=== PATIENT | female | born 1955 | race Caucasian/White ===

== ENCOUNTER 2016-06-05 14:16 | Emergency (ER) | payer BC ==
--- NOTE | ~2016-06-05 | EKG ---
PATIENT: ADRIANO MAGANA UNIT #: [id number] Ventricular Rate: 57 BPM Atrial Rate: 57 BPM P-R Interval: 188 ms QRS Duration: 90 ms Q-T Interval: 686 ms QTC Calculation(Bezet): 667 ms P [place]: 37 degrees Calculated R [place]: 33 degrees Calculated T [place]: 49 degrees Diagnosis Line: Sinus bradycardia Diagnosis Line: Low voltage QRS Diagnosis Line: Nonspecific ST abnormality Diagnosis Line: Prolonged QT Diagnosis Line: Abnormal ECG Diagnosis Line: No previous ECGs available Diagnosis Line: Confirmed by HARRIET HO MD ([id number]) on Diagnosis Line: 06/06/2016 8:17:08 AM INTERPRETING MD: GEORGIA TAFOYA
--- NOTE | ~2016-06-05 | CT57 ---
[facility] A Service of [facility] RADIOLOGY TEXT RESULTS PATIENT: ADRIANO MAGANA LOCATION: [facility] : 55 UNIT #: [id number] AGE: [address]: Sergio Witt MD SEX: F ORDER DR: [id number] [facility] [address] [place], [place] [address] [id number] E MR#: [id number] Acc #: [id number] NAME: ADRIANO MAGANA : 1955 SEX: F STUDY DATE/TIME: 06/05/2016 15:42 UNIT: [facility] ROOM: STUDY DESCRIPTION: CT Chest Wo Cont Attending Physician: Sergio Witt M.D. Ordering Physician: Svetlana Vu M.D. Primary Care Physician: Anand Field, [facility] MEDICAL IMAGING REPORT This report is preliminary unless electronic signature is present EXAM CT of the chest without contrast, 06/05/2016 INDICATION 61-year-old female with history of hypertension, weakness since last week, history of aortic aneurysm. TECHNIQUE CT of the chest was performed without contrast. Coronal and sagittal reformatted images were obtained. Compared with 06/30/2013. This CT exam was performed with one or more of the following radiation dose reduction techniques: automatic exposure control, adjustment of mA and/or kV according to patient size, and iterative reconstruction. FINDINGS Redemonstrated is aneurysmal dilatation of the ascending aorta which measures about 4.5 cm in greatest dimension. This is stable. The descending thoracic aorta is within normal limits. There is trace pericardial fluid or thickening. This is stable. There is no pleural effusion. There is no lymphadenopathy. Calcified hilar lymph nodes on the right. Stable tiny right middle lobe nodule which should be benign. Linear scarring or atelectasis in the bases of both lower lobes. Stable chronic tree-in-bud nodularity in the superior segment of the left lower lobe. No new nodule or airspace consolidation. Limited imaging of the upper abdomen demonstrates cholecystectomy. Stable hyperdense lesion in the left kidney likely reflecting a hyperdense cyst. Stable dilated common bile duct. Degenerative changes of the thoracic spine. IMPRESSION [facility] A Service of [facility] RADIOLOGY TEXT RESULTS PATIENT: ADRIANO MAGANA [facility] #: [id number] : 55 UNIT #: [id number] AGE: [address]: Sergio Witt MD SEX: F ORDER DR: There is no acute abnormality. The study is unchanged compared with 2014. Stable ascending aortic aneurysm. Dictated by... Barrie Ryan M.D. THIS IS AN ELECTRONICALLY VERIFIED REPORT Barrie Ryan M.D. at 06/06/2016 4:43 PM ADILENE/ramona TD: 06/05/2016 23:26 JOB #: [id number] MEDICAL IMAGING REPORT COPY
[2016-06-05 14:03] LABS: URINE SOURCE CLEAN CATCH
[2016-06-05 14:20] LABS: URINE APPEARANCE CLEAR; URINE BILIRUBIN NEG (NEG); URINE BLOOD NEG (NEG); URINE COLOR YELLOW; URINE GLUCOSE NEG (NEG); URINE KETONE NEG (NEG); URINE LEUKOCYTE ESTERASE TRACE (NEG); URINE NITRATE NEG (NEG); URINE PROTEIN NEG (NEG); URINE SPECIFIC GRAVITY 1.009 (1.003-1.035); URINE UROBILINOGEN 0.2 MG/DL (NEG)
[2016-06-05 14:24] LABS: U HYALINE CASTS AUWI 0-2 /[LPF]; URBCS1 AUWI 0-2 /[HPF] (0-2); URINE BACTERIA AUWI NEG (NEGATIVE); URINE SQUAMOUS EPITHELIAL CELL NONE SEEN /[HPF]; UWBCS1 AUWI 0-2 (0-5)
[2016-06-05 14:26] LABS: CULTURE INDICATED? NO
[2016-06-05 15:08] LABS: BASOPHIL# 0.1 X10e3 (0-0.3); BASOPHIL% 0.8 % (0-2.5); EOSINOPHIL# 0.1 X10e3 (0-0.7); EOSINOPHIL% 0.8 % (0.0-7.0); HEMATOCRIT 40.1 % (35.0-45.0); HEMOGLOBIN 13.7 gm/dL (12.0-16.0); LYMPHOCYTE# 2.1 X10e3 (1.0-3.5); MEAN CORPUSCULAR HEMOGLOBIN 30.3 PG (28-34); MEAN PLATELET VOLUME 8.5 FL (6.5-11.5); MONOCYTE# 0.7 X10e3 (0-1.0); MONOCYTE% 8.8 % (3.0-12.0); NEUTROPHIL# 4.6 X10e3 (1.5-7.1); NEUTROPHIL% 61.6 % (40-75); PLATELET COUNT 273 X10e3 (140-420); RED BLOOD COUNT 4.51 X10e (3.90-5.30); RED CELL DISTRIBUTION WIDTH 12.8 % (11.0-15.5); WHITE BLOOD COUNT 7.5 X10e3 (4.0-10.5)
[2016-06-05 15:09] LABS: DIFF IND NO
[2016-06-05 15:10] LABS: POC - CKMB <1.0 ng/mL (0.0-7.9); POC - TROPONIN <0.05 ng/mL (<=0.05)
[2016-06-05 15:16] LABS: PROTHROMBIN TIME (PATIENT) 10.7 SECONDS (9.6-11.5)
[2016-06-05 15:43] LABS: ALBUMIN SERUM 4.4 g/dL (3.5-5.0); ALKALINE PHOSPHATASE 139 U/L (32-92); ALT (SGPT) 56 U/L (10-40); AST (SGOT) 61 U/L (10-42); BILIRUBIN, DIRECT 0.2 mg/dL (0.0-0.2); BILIRUBIN,INDIRECT 0.8 mg/dL (0.0-0.9); BLOOD UREA NITROGEN 21 mg/dL (9-23); BUN/CREATININE RATIO 26.25; CALCIUM SERUM 8.7 mg/dL (8.4-10.2); CARBON DIOXIDE 33 mmol/L (22-31); CHLORIDE 91 mmol/L (100-111); CREATININE SERUM 0.8 mg/dL (0.6-1.4); GLOM FILT RATE Estimated ABOVE60 mL/min (>60); GLUCOSE FASTING 108 mg/dL (70-110); PROTEIN TOTAL SERUM 7.3 g/dL (6.0-8.3); SODIUM 135 mmol/L (135-145)
[2016-06-05 16:33] LABS: INFLUENZA A NEG (NEG); INFLUENZA B NEG (NEG)
[2016-06-05 16:53] LABS: POC - CKMB 1.7 ng/mL (0.0-7.9); POC - TROPONIN <0.05 ng/mL (<=0.05)
== END 2016-06-05 19:18 | disposition home or self-care (01) ==
LOC: CED 14:16
PROVIDERS: Emergency Medicine
DX: E87.6 Hypokalemia (principal); Z91.041 Radiographic dye allergy status
CPT/HCPCS: 36415; 71250; 80048; 80076; 81003; 82553; 82947; 83735; 84484; 85025; 85610; 87804; 93005; 96365; 99284

== ENCOUNTER → 2016-11-21 | Outpatient (CLI) | payer BC ==
--- NOTE | ~2016-11-21 | CT71 ---
[facility] A Service [facility] RADIOLOGY TEXT RESULTS PATIENT: ADRIANO MAGANA LOCATION: [facility] : 55 UNIT #: [id number] AGE: [address]: Jeff Box MD SEX: F ORDER DR: [id number] [place] [id number] [facility]. [place], [place] [address] [id number] O MR#: [id number] Acc #: [id number] NAME: ADRIANO MAGANA : 1955 SEX: F STUDY DATE/TIME: 11/21/2016 16:05 UNIT: [facility] ROOM: STUDY DESCRIPTION: CT Head Wo Contrast Attending Physician: Jeff Box M.D. Referring Physician: Jeff Box M.D. Ordering Physician: Jeff Box M.D. Primary Care Physician: Anand Field, [facility] MEDICAL IMAGING REPORT This report is preliminary unless electronic signature is present EXAM Head CT no contrast 11/21/2016 PROCEDURE Axial unenhanced head CT. The CT exam was performed with one or more of the following radiation dose reduction techniques: automatic exposure control, adjustment of mA and/or kV according to patient size, and iterative reconstruction. COMPARISON None. CLINICAL HISTORY Memory loss, forgetfulness for about 1 year. FINDINGS There is no intracranial hemorrhage or mass and there is no hydrocephalus or extraaxial fluid collection. There are mild nonspecific white matter changes typical of chronic small vessel disease but no acute abnormality is seen. The extracranial soft tissues, skull base and calvaria are unremarkable. IMPRESSION Minimal nonspecific white matter change otherwise normal negative unenhanced head CT. No acute abnormality. Dictated by... Jorge Potter M.D. [facility] A Service [facility] RADIOLOGY TEXT RESULTS PATIENT: ADRIANO MAGANA LOCATION: [facility] : 55 UNIT #: [id number] AGE: [address]: Jeff Box MD SEX: F ORDER DR: THIS IS AN ELECTRONICALLY VERIFIED REPORT Jorge Potter M.D. at 11/24/2016 4:07 PM FARRAH/mima TD: 11/22/2016 09:05 JOB #: [id number] MEDICAL IMAGING REPORT Page 1 of 1 COPY
--- NOTE | ~2016-11-21 | US37 ---
[facility] A Service of [facility] RADIOLOGY TEXT RESULTS PATIENT: ADRIANO MAGANA LOCATION: [facility] : 55 UNIT #: [id number] AGE: [address]: Jeff Box MD SEX: F ORDER DR: [id number] [facility] [address] [place], [place] [address] [id number] O MR#: [id number] Acc #: [id number] NAME: ADRIANO MAGANA : 1955 SEX: F STUDY DATE/TIME: 11/21/2016 15:43 UNIT: [facility] ROOM: STUDY DESCRIPTION: US Carotid W/Doppler Bilateral Attending Physician: Jeff Box M.D. Referring Physician: Jeff Box M.D. Ordering Physician: Jeff Box M.D. Primary Care Physician: Anand Field, [facility] MEDICAL IMAGING REPORT This report is preliminary unless electronic signature is present EXAM Carotid Doppler bilateral 11/21/2016 HISTORY Memory loss and confusion for 4 months. Hypertension. Evaluate for carotid stenosis. TECHNIQUE Ho-scale carotid artery images were obtained as well as Doppler waveform spectral analysis and color flow Doppler imaging. Examination was interpreted according to NASCET criteria. FINDINGS There is no hemodynamically significant stenosis in either carotid artery. Peak systolic velocity in the right and left internal carotid arteries is 49 cm/sec and 68 cm/sec respectively. Antegrade blood flow is seen both vertebral arteries. IMPRESSION No hemodynamically significant stenosis in either carotid artery. Dictated by... Javed Patel M.D. THIS IS AN ELECTRONICALLY VERIFIED REPORT Javed Patel M.D. at 11/22/2016 7:47 AM LUCAS/ashley TD: 11/21/2016 21:08 JOB #: [id number] [facility] A Service of [facility] RADIOLOGY TEXT RESULTS PATIENT: ADRIANO MAGANA LOCATION: [facility] : 55 UNIT #: [id number] AGE: [address]: Jeff Box MD SEX: F ORDER DR: MEDICAL IMAGING REPORT Page 1 of 1 COPY
== END | disposition home or self-care (01) ==
LOC: CNIV 14:47
DX: R41.3 Other amnesia (principal); R60.0 Localized edema
CPT/HCPCS: 70450; 93880